=== PATIENT | male | born 1955 | race Caucasian/White ===

== ENCOUNTER 2021-04-14 07:11 | Inpatient (IN) | payer OTHER ==
[~2021-04-14] VITALS: Ht 182.9 cm; Wt 124.0 kg
[2021-04-14] MEDS ORDERED: PROAAER10 INH (07:33)
[2021-04-14] MEDS ORDERED: LISI20TA33 PO (07:33)
[2021-04-14] MEDS ORDERED: COMBAER6 INH (07:33)
[2021-04-14] MEDS ORDERED: SYMB16INH INH (07:33)
[2021-04-14] MEDS ORDERED: LEVO175C PO (07:33)
[2021-04-14] MEDS ORDERED: LASI20TA3 PO (07:33)
[2021-04-14] MEDS ORDERED: ALBUTEROL SULFATE 2.5 MG/0.5 ML INH NEB SOLN INH ONE (07:40)
[2021-04-14] MEDS ORDERED: IPRATROPIUM 0.5MG/ALBUTEROL 2.5MG INH SOL UD 3ML (DUONEB) NEB ONE ×3 (07:40→11:10)
[2021-04-14] MEDS: SYMBICORT 160/4.5MCG INHALER 6GM INH SCH ×2 (08:00→20:59)
[2021-04-14 08:13] LABS: BASO % 0.2 % (0.0-1.0); EOS # 0.1 10^3/uL (0.0-0.5); EOS % 0.7 % (0.0-3.0); HEMATOCRIT 43.7 % (42.0-52.0); HEMOGLOBIN 14.6 g/dl (13.5-17.5); LYMPH # 0.4 10^3/uL (1.5-5.0); MEAN CORPUSCULAR HEMOGLOBIN 31.4 pg (27.0-33.0); MEAN CORPUSCULAR HGB CONC 33.4 g/dl (32.0-36.5); MONO # 0.8 10^3/uL (0.0-0.8); MONO % 8.1 % (2.0-8.0); NEUTROPHILS # 7.9 10^3/uL (1.5-8.5); NEUTROPHILS % 86.2 % (36.0-66.0); PLATELET COUNT, AUTOMATED 217 10^3/uL (150-450); RED BLOOD COUNT 4.65 10^6/uL (4.30-6.10); WHITE BLOOD COUNT 9.2 10^3/uL (4.0-10.0)
--- NOTE | 2021-04-14 08:17 | REP ---
INDICATION: DYSPNEA/COUGH COMPARISON: 11/28/2012 TECHNIQUE: Portable AP view of the chest FINDINGS: Mediastinum and cardiac silhouette are stable with cardiomegaly again suggested. Lung ashton demonstrate diffuse chronic interstitial changes primarily involving the lower lobes. Superimposed bibasilar infiltrates/atelectasis and small pleural effusions are suspected and require correlation. IMPRESSION: Acute on chronic changes including bibasilar atelectasis/infiltrate and small pleural effusions suspected. Differential diagnosis includes element of CHF. <Electronically signed by Dannie Dixon > 04/14/21 [id number]
[2021-04-14 08:47] LABS: ALBUMIN 2.7 GM/DL (3.2-5.2); ALT/SGPT 30 U/L (12-78); BILIRUBIN,DIRECT 0.3 MG/DL (0.0-0.2); BILIRUBIN,TOTAL 0.9 MG/DL (0.2-1.0); BLOOD UREA NITROGEN 10 MG/DL (7-18); CALCIUM LEVEL 8.3 MG/DL (8.8-10.2); CARBON DIOXIDE LEVEL 29 MEQ/L (21-32); CHLORIDE LEVEL 88 MEQ/L (98-107); GLOMERULAR FILTRATION RATE > 60.0 (>49); GLUCOSE, FASTING 93 MG/DL (70-100); NT-PRO BNP 1688 PG/ML (<125); POTASSIUM SERUM 5.2 MEQ/L (3.5-5.1); SODIUM LEVEL 121 MEQ/L (136-145); TOTAL PROTEIN 6.8 GM/DL (6.4-8.2)
[2021-04-14 08:48] LABS: CK-MB VALUE MASS 7.3 NG/ML (<3.6); CPK CREATINE PHOSPHOKINASE 187 U/L (39-308); TROPONIN I < 0.02 NG/ML (< 0.10)
[2021-04-14] MEDS ORDERED: cefTRIAXone SOD 1 GM in D5W MINI-BAG PLUS 50 ML IV ONE (08:55)
[2021-04-14] MEDS ORDERED: AZITHROMYCIN INJ 500 MG, VIAL MATE ADAPTER 1 EACH in NS 250 ML IV ONE (08:55)
[2021-04-14] MEDS: DOCUSATE SODIUM 100MG CAPSULE PO SCH ×2 (09:00→22:22)
[2021-04-14] MEDS ORDERED: ISOVUE-370 76% 100ML VIAL As Ordered ONE ×2 (09:22→10:32)
[2021-04-14] MEDS ORDERED: FUROSEMIDE 20MG/2ML VIAL (J1940) IV ONE (09:25)
[2021-04-14] MEDS ORDERED: FUROSEMIDE 40MG/4ML VIAL (J1940) IV ONE (09:30)
[2021-04-14] MEDS ORDERED: LISI10TA22 PO (09:37)
[2021-04-14] MEDS ORDERED: LEVO175T2 PO (09:37)
[2021-04-14] MEDS ORDERED: MOM 30ML SUSPENSION UDC PO PRN (09:50)
[2021-04-14] MEDS ORDERED: MAALOX 30 ML SUSP *UDC PO PRN (09:50)
[2021-04-14] MEDS ORDERED: IPRATROPIUM 0.5MG/ALBUTEROL 2.5MG INH SOL UD 3ML (DUONEB) NEB PRN (09:50)
[2021-04-14] MEDS ORDERED: ACETAMINOPHEN TAB 650MG DOSE (2X325MG) PO PRN (09:50)
[2021-04-14] MEDS: IPRATROPIUM 0.5MG/ALBUTEROL 2.5MG INH SOL UD 3ML (DUONEB) NEB SCH ×4 (11:10→23:45)
[2021-04-14 11:47] LABS: FREE T4 1.24 NG/DL (0.76-1.46); THYROID STIMULATING HORMONE 1.02 uIU/ML (0.358-3.740)
[2021-04-14 12:15] VITALS: BP 172/85
--- NOTE | 2021-04-14 13:04 | HPEPDOC ---
[facility] Medical History & Physical Date of Admission April 14, 2021 Date of Service: April 14, 2021 History and Physical CHIEF COMPLAINT: Shortness of breath HISTORY OF PRESENT ILLNESS: 65-year-old male with a past medical history of COPD using 3 L of oxygen at home, hypertension, hypothyroidism who presents to the hospital by EMS due to a 3 day history of increased shortness of breath at home. Tells me his been wheezing extensively in his home inhalers have not been helping. Tells me he thinks his COPD is acting up again he is an active smoker and has been smoking for over 50 years. Tells me his shortness of breath has gotten so bad he was not able to sleep at night. He denies sputum production and tells me he does not have a fever or chills denies any chest pain. Tells me the nebulizer treatment sees received since his been have helped and he feels a little better. In the emergency department patient was found to be fluid overloaded possibly from underlying congestive heart failure although he denies having a history of congestive heart failure although he does take Lasix at home. He is also suspected to have a pneumonia. Patient will be admitted to medical service for further workup and management of acute on chronic COPD exacerbation, possible pneumonia, possible CHF exacerbation. PAST MEDICAL/SURGICAL HISTORY: COPD on home oxygen Hypertension Hypothyroidism ?CHF SOCIAL HISTORY: Endorses drinking alcohol intermittently when he drinks he drinks about 6 packs a day denies ever going through withdrawals Smokes 3-4 pipes of tobacco daily has been smoking for the past 50 years Denies illicit drug use FAMILY HISTORY: Reviewed and none contributory to this admission ALLERGIES: Please see below. REVIEW OF SYSTEMS: 10 point review of systems complete all negative otherwise stated in HPI HOME MEDICATIONS: Please see below. PHYSICAL EXAMINATION: Constitutional: Awake and alert, appears comfortable, poor hygiene disheveled, doesn't appear to have showered for a long time, ENT: Sclera are clear. Mucosa is moist. Respiratory: Lungs and expiratory wheezing bilaterally. On supplemental oxygen by nasal cannula. He's able to speak to me 4-5 words at a time Cardiovascular: Regular rate and rhythm Gastrointestinal: Abdomen is soft, non distended, non tender, BS present. Obese abdomen Musculoskeletal: Has been wearing the same compression stockings for the past 4 days he has 2-3+ pitting edema up to his knees Neurologic: No focal neurological deficit. Mental Status: A&O x3, normal affect LABORATORY DATA: See below. IMAGING: See chart MICROBIOLOGY: Please see below. ASSESSMENT/PLAN 65-year-old male history of COPD on home oxygen, hypertension, hypothyroidism presents with shortness of breath found to have COPD exacerbation and possibly CHF exacerbation and pneumonia. Patient admitted for further workup and management. # Acute on chronic COPD exacerbation: Active smoker. Wheezing on exam. Some improvement with nebulizer treatments. Duonebs scheduled and as needed. Sym bicort scheduled. Incentive spirometry. IV Solu-Medrol twice a day. Doxycycline. # Congestive heart failure EF unknown: No previous echo in chart. Follow-up echo. Clinically appears fluid overloaded. Likely contributing to shortness of breath. Diuresis with IV Lasix. Monitor ins and outs. Limit fluid intake 1.5 L per day. # SIRS/Sepsis: Pneumonia possible source of infection. Presented with hypo tension initially which responded well to IV fluids. Continue antibiotics and IV fluids for now. Blood pressure now hypertensive. Follow-up blood cultures. # Possible pneumonia: Chest x-ray suggestive of atelectasis versus pneumonia. Will initiate antibiotics with IV ceftriaxone and doxycycline.Procalcitonin is pending suspicion of pneumonia is not very high and if calcitonin is negative and antibiotics can be discontinued. Sputum culture. # Hypothyroidism: resume Synthroid. # Alcohol abuse: drinks daily. CIWA protocol. Thiamine, MVN, folate. Ativan PRN. # Smoker: Counseled to quit smoking. Nicotine patch. # Obesity: BMI 37. Complicated scare # DVT prophylaxis: Lovenox A Yousef Hospitalist Vital Signs Vital Signs Date Time Temp Pulse Resp B/P (MAP) Pulse Ox O2 Delivery O2 Flow Rate FiO2 04/14/21 12:15 172/85 (114) 04/14/21 11:37 97.7 96 20 95 Nasal Cannula 3.0 Laboratory Data Labs 24H Laboratory Tests 2 04/14/21 07:44: Immature Granulocyte % (Auto) 0.8, Neutrophils (%) (Auto) 86.2H, Lymphocytes (%) (Auto) 4.0L, Monocytes (%) (Auto) 8.1H, Eosinophils (%) (Auto) 0.7, Basophils (%) (Auto) 0.2, Neutrophils # (Auto) 7.9, Lymphocytes # (Auto) 0.4L, Monocytes # (Auto) 0.8, Eosinophils # (Auto) 0.1, Basophils # (Auto) 0.0, Nucleated Red Blood Cells % (auto) 0.0, Anion Gap 4L, Glomerular Filtration Rate > 60.0, Calcium Level 8.3L, Total Bilirubin 0.9, Direct Bilirubin 0.3H, Aspartate Amino Transf (AST/SGOT) 29, Alanine Aminotransferase (ALT/SGPT) 30, Alkaline Loco sphatase 83, HX-Fht-V-Type Natriuretic Peptide 1688H, Total Protein 6.8, Albumin 2.7L, Albumin/Globulin Ratio 0.7 04/14/21 07:54: POC pH (Misc Panel) 7.345L, POC Base Excess (Misc Panel) 5.0H, POC Saturated Percent O2 (Misc) 98, POC pO2 (Misc Panel) 114.0H, POC pCO2 (Misc Panel) 56.7H, POC HCO3 (Misc Panel) 31.0H, POC Total CO2 (Misc Panel) 33.0H 04/14/21 08:02: Total Creatine Kinase 187, Creatine Kinase MB 7.3H, Creatine Kinase MB Relative Index 3.90, Troponin I < 0.02 04/14/21 08:55: Osmolality 257L, Thyroid Stimulating Hormone (TSH) 1.020, Free Thyroxine 1.24 04/14/21 09:46: Procalcitonin <0.05 CBC/BMP Laboratory Tests 04/14/21 07:44 Microbiology Microbiology 04/14/21 Respiratory [facility] ([facility]) ([facility]) - Final, Complete Home Medications Scheduled Budesonide/Formoterol (Symbicort 160-4.5 Mcg Inhaler) 6 Gm Hfa.aer.ad, 2 PUFF INH BID Furosemide (Lasix) 20 Mg Tablet, 20 MG PO DAILY Levothyroxine Sodium (Levothyroxine Sodium) 175 Mcg Tablet, 175 MCG PO DAILY Lisinopril (Lisinopril) 10 Mg Tablet, 10 MG PO DAILY Scheduled PRN Albuterol Sulfate (Proair Hfa) 8.5 Gm Hfa.aer.ad, 2 PUFF INH Q6H PRN for SHORTNESS OF BREATH Ipratropium/Albuterol Sulfate (Combivent Respimat 20-100 Mcg) 4 Gm Mist.inhal, 2 PUFF INH TID PRN for SHORTNESS OF BREATH Allergies Coded Allergies: No Known Drug Allergies (Verified Allergy, Unknown, 04/14/21) A-FIB/CHADSVASC A-FIB History Current/History of A-Fib/PAF?: No YOUSEFCASTILLO MD April 14, 2021 13:04
[2021-04-14] MEDS ORDERED: LORazepam 2 MG TAB PO PRN (13:05)
[2021-04-14] MEDS: NICOTINE 21MG/24HR 1 EA TRANSDERMAL TD SCH (13:08)
[2021-04-14] MEDS: methylPREDNISolone 125MG 2ML VIAL IV SCH ×2 (13:08→22:22)
[2021-04-14] MEDS: DOXYCYCLINE HYCLATE 100 MG in D5W MINI-BAG PLUS 100 ML IV SCH (13:08)
[2021-04-14] MEDS: ENOXAPARIN 40MG/0.4ML SYRINGE (J1650 PER 10MG) SC SCH (13:09)
[2021-04-14] MEDS: PANTOPRAZOLE 40MG TAB (PROTONIX) PO SCH (13:09)
[2021-04-14] MEDS: FUROSEMIDE 40MG/4ML VIAL (J1940) IV SCH ×2 (13:09→18:28)
[2021-04-14 14:43] VITALS: BP 172/75
[2021-04-14] MEDS: FOLIC ACID 1 MG TAB PO SCH (15:29)
[2021-04-14] MEDS: MULTIVITAMINS/MINERALS THERAP 1 TAB PO SCH (15:29)
[2021-04-14] MEDS: THIAMINE 100 MG TAB PO SCH ×2 (15:30→22:22)
[2021-04-14 16:00] VITALS: BP 156/77
[2021-04-14] MEDS ORDERED: SLF 3 ML SYR IV PRN (17:45)
[2021-04-14 20:00] VITALS: BP 156/85
--- NOTE | 2021-04-14 20:33 | ECGEPIP ---
[facility] - ED Test Date: 2021-04-14 Pat Name: GENOVEVA LANZA Department: Room: - Gender: Male Analytics Intern: BENJA : 1955 Requested By: Rafiq Nye Order Number: [id number] Reading MD: Harriet Elias Measurements Intervals [place] Rate: 90 P: 70 IN: 188 QRS: -40 QRSD: 108 T: 60 QT: 354 QTc: 433 Interpretive Statements Normal sinus rhythm Left axis deviation Pulmonary disease pattern Incomplete left bundle branch block ST & T wave abnormality, consider anterolateral ischemia, clinical correlation no prior Electronically Signed on 04-14-2021 20:33:15 EDT by Harriet Elias
[2021-04-14 22:00] VITALS: BP 156/85
[2021-04-14] MEDS: SLF 3 ML SYR IV SCH (22:22)
[2021-04-15] VITALS (7 sets, daily range): BP systolic 145–174; BP diastolic 83–100
[2021-04-15] MEDS: DOXYCYCLINE HYCLATE 100 MG in D5W MINI-BAG PLUS 100 ML IV SCH (00:11)
[2021-04-15] MEDS: IPRATROPIUM 0.5MG/ALBUTEROL 2.5MG INH SOL UD 3ML (DUONEB) NEB SCH ×6 (04:26→23:58)
[2021-04-15 05:53] LABS: HEMATOCRIT 42.8 % (42.0-52.0); HEMOGLOBIN 14.3 g/dl (13.5-17.5); MEAN CORPUSCULAR HEMOGLOBIN 31.5 pg (27.0-33.0); MEAN CORPUSCULAR HGB CONC 33.4 g/dl (32.0-36.5); MEAN CORPUSCULAR VOLUME 94.3 fl (80.0-96.0); PLATELET COUNT, AUTOMATED 226 10^3/uL (150-450); RED BLOOD COUNT 4.54 10^6/uL (4.30-6.10); WHITE BLOOD COUNT 10.9 10^3/uL (4.0-10.0)
[2021-04-15] MEDS: LEVOTHYROXINE 25MCG TABLET (0.025MG) PO SCH (06:07)
[2021-04-15] MEDS: SLF 3 ML SYR IV SCH ×3 (06:07→23:18)
[2021-04-15] MEDS: LEVOTHYROXINE 150MCG TABLET (0.15MG) PO SCH (06:07)
[2021-04-15 06:28] LABS: ALBUMIN 2.6 GM/DL (3.2-5.2); ALT/SGPT 27 U/L (12-78); BILIRUBIN,TOTAL 0.6 MG/DL (0.2-1.0); BLOOD UREA NITROGEN 19 MG/DL (7-18); CALCIUM LEVEL 8.5 MG/DL (8.8-10.2); CARBON DIOXIDE LEVEL 33 MEQ/L (21-32); CHLORIDE LEVEL 88 MEQ/L (98-107); CREATININE FOR GFR 1.13 MG/DL (0.70-1.30); GLOMERULAR FILTRATION RATE > 60.0 (>49); GLUCOSE, FASTING 121 MG/DL (70-100); POTASSIUM SERUM 5.5 MEQ/L (3.5-5.1); SODIUM LEVEL 122 MEQ/L (136-145); TOTAL PROTEIN 7.3 GM/DL (6.4-8.2)
[2021-04-15] MEDS ORDERED: IPRATROPIUM 0.5MG/ALBUTEROL 2.5MG INH SOL UD 3ML (DUONEB) NEB PRN (07:55)
[2021-04-15] MEDS: SYMBICORT 160/4.5MCG INHALER 6GM INH SCH ×2 (07:59→20:33)
[2021-04-15] MEDS: ENOXAPARIN 40MG/0.4ML SYRINGE (J1650 PER 10MG) SC SCH (08:40)
[2021-04-15] MEDS: DOCUSATE SODIUM 100MG CAPSULE PO SCH ×2 (08:40→20:08)
[2021-04-15] MEDS: FUROSEMIDE 40MG/4ML VIAL (J1940) IV SCH ×2 (08:41→18:02)
[2021-04-15] MEDS: PANTOPRAZOLE 40MG TAB (PROTONIX) PO SCH (08:41)
[2021-04-15] MEDS: NICOTINE 21MG/24HR 1 EA TRANSDERMAL TD SCH (08:41)
[2021-04-15] MEDS: MULTIVITAMINS/MINERALS THERAP 1 TAB PO SCH (08:41)
[2021-04-15] MEDS: FOLIC ACID 1 MG TAB PO SCH (08:41)
[2021-04-15] MEDS: THIAMINE 100 MG TAB PO SCH ×2 (08:41→20:08)
[2021-04-15] MEDS ORDERED: cefTRIAXone SOD 1 GM in D5W MINI-BAG PLUS 50 ML IV SCH (11:00)
[2021-04-15] MEDS: methylPREDNISolone 125MG 2ML VIAL IV SCH ×2 (12:09→23:17)
--- NOTE | 2021-04-15 12:24 | IPNPDOC ---
Text Note Date of Service The patient was seen on 04/15/21. NOTE Subjective: -No acute complaints -Remains on 2L NC -Reports that he is not bringing anything up and wish he could break it up and bring it up. Objective: PHYSICAL EXAMINATION: Constitutional: Awake and alert, NAD ENT: Sclera are clear and anicteric. Mucosa is moist. Respiratory: Tight, wheezing, on 2L NC, speaking in 1/2 sentences at this time, coughing Cardiovascular: Regular rate and rhythm, no murmurs or gallops Abdomen: Obese, normoactive sounds, soft, non distended, non tender. Extremities: 2-3+ pitting edema up to his knees, WWP Neurologic: AOx3, CN2-12 appear grossly intact, no noted focal neurological deficit. Mental Status: A&O x3, normal affect LABORATORY DATA: Reviewed WBC 10.9 Hgb 14.3 platelets 226 Na 122 K 5.5 Cr 1.13 MICROBIOLOGY: Please see below. ASSESSMENT/PLAN 65-year-old M with a history of COPD on home oxygen, hypertension, hypothyroi dism who presented with shortness of breath and admitted for COPD exacerbation and possibly CHF exacerbation and possible bacterial pneumonia. # COPD exacerbation: Active smoker with wheezing on exam. with some improvement with nebulizer treatments. -Duonebs scheduled and as needed. -Symbicort scheduled. -Incentive spirometry. -IV Solu-Medrol twice a day. -Q6H hypertonic saline -scheduled mucinex -DC doxycycline # SIRS/Sepsis: With pulmonary symptoms and possible pneumonia -Discontinue empiric antibiotics. -Follow-up blood cultures. -procalcitonin was normal making bacterial PNA highly unlikely, and thus discontinuation of antibiotics #Newly noted likely congestive heart failure EF unknown: -No previous echo in chart. Follow-up echo. -Clinically appears fluid overloaded. -Diuresis with IV Lasix. -Strict ins and outs. -Limit fluid intake 1.5 L per day. #Hyponatremia: likely hypotonic driven by hypervolemia in the setting of CHF. Of note, also has alcohol use disorder. -check urine sodium. This was ordered on the morning of 04/14 and has still to be collected, will remind nursing to please collect. -monitor daily Na -continue ongoing diuresis #Hyperkalemia: -on BID lasix # Hypothyroidism: -continue home Synthroid. # Alcohol abuse: -drinks daily. -CIWA protocol. -Thiamine, MVN, folate. -Ativan PRN. # Smoker: -Counseled to quit smoking. -Nicotine patch. # Obesity: BMI 37. Complicates care # DVT prophylaxis: Lovenox VS,Fishbone, I+O VS, Fishbone, I+O Laboratory Tests 04/14/21 07:44 04/15/21 05:33 Vital Signs Date Time Temp Pulse Resp B/P (MAP) Pulse Ox O2 Delivery O2 Flow Rate FiO2 04/15/21 06:00 100 156/98 04/15/21 04:00 97.8 22 95 Nasal Cannula 2.0 I&O- Last 24 Hours up to 6 AM 04/15/21 06:00 Intake Total 890 ml Output Total 800 ml Balance 90 ml IRASEMA LANDIS MD April 15, 2021 07:59
[2021-04-15] MEDS: SODIUM CHLORIDE HYPERTONIC 3% 15ML NEB SOL INH SCH ×2 (13:09→23:58)
[2021-04-15] MEDS: guaiFENesin 200 MG TAB PO SCH ×3 (13:42→23:18)
[2021-04-16] MEDS: SODIUM CHLORIDE HYPERTONIC 3% 15ML NEB SOL INH SCH ×4 (04:03→23:35)
[2021-04-16] MEDS: IPRATROPIUM 0.5MG/ALBUTEROL 2.5MG INH SOL UD 3ML (DUONEB) NEB SCH ×6 (04:03→23:35)
[2021-04-16] MEDS: LEVOTHYROXINE 150MCG TABLET (0.15MG) PO SCH (05:11)
[2021-04-16] MEDS: LEVOTHYROXINE 25MCG TABLET (0.025MG) PO SCH (05:11)
[2021-04-16] MEDS: guaiFENesin 200 MG TAB PO SCH ×4 (05:11→23:53)
[2021-04-16] MEDS: SLF 3 ML SYR IV SCH ×3 (05:12→21:15)
[2021-04-16 05:32] LABS: APPEARANCE, URINE CLEAR (CLEAR); BACTERIA, URINE AUTO NEGATIVE (NEGATIVE); BILIRUBIN, URINE AUTO NEGATIVE (NEGATIVE); BLOOD, URINE BLOOD 3+ (NEGATIVE); COLOR, URINE YELLOW (YELLOW); GLUCOSE, URINE (UA) AUTO NEGATIVE (NEGATIVE); KETONE, URINE AUTO NEGATIVE (NEGATIVE); LEUKOCYTE ESTERASE, URINE AUTO NEGATIVE (NEGATIVE); MUCUS, URINE SMALL (NEGATIVE); NITRITE, URINE AUTO NEGATIVE (NEGATIVE); PROTEIN, URINE AUTO NEGATIVE (NEGATIVE); RBC, URINE AUTO 6 /HPF (0-3); SPECIFIC GRAVITY URINE AUTO 1.009 (1.002-1.035); SQUAMOUS EPITHELIAL CELL UR AU 0 /HPF (0-6); UROBILINOGEN, URINE AUTO 0.2 mg/dL (0.0-2.0); WBC, URINE AUTO 2 /HPF (0-3)
[2021-04-16 05:54] LABS: CREATININE,RANDOM URINE 75.6 MG/DL; SODIUM,RANDOM URINE 10 MEQ/L
[2021-04-16 06:00] VITALS: BP 168/97
[2021-04-16] MEDS: SYMBICORT 160/4.5MCG INHALER 6GM INH SCH ×2 (07:29→20:03)
[2021-04-16 09:38] LABS: HEMATOCRIT 48.9 % (42.0-52.0); MEAN CORPUSCULAR HEMOGLOBIN 31.7 pg (27.0-33.0); MEAN CORPUSCULAR HGB CONC 32.7 g/dl (32.0-36.5); PLATELET COUNT, AUTOMATED 273 10^3/uL (150-450); RED BLOOD COUNT 5.04 10^6/uL (4.30-6.10); WHITE BLOOD COUNT 13.3 10^3/uL (4.0-10.0)
[2021-04-16] MEDS: NICOTINE 21MG/24HR 1 EA TRANSDERMAL TD SCH (09:55)
[2021-04-16] MEDS: PANTOPRAZOLE 40MG TAB (PROTONIX) PO SCH (09:56)
[2021-04-16] MEDS: MULTIVITAMINS/MINERALS THERAP 1 TAB PO SCH (09:56)
[2021-04-16] MEDS: FUROSEMIDE 40MG/4ML VIAL (J1940) IV SCH (09:56)
[2021-04-16] MEDS: ENOXAPARIN 40MG/0.4ML SYRINGE (J1650 PER 10MG) SC SCH (09:56)
[2021-04-16] MEDS: DOCUSATE SODIUM 100MG CAPSULE PO SCH ×2 (09:56→21:15)
[2021-04-16] MEDS: THIAMINE 100 MG TAB PO SCH ×2 (09:58→21:15)
[2021-04-16] MEDS: FOLIC ACID 1 MG TAB PO SCH (09:58)
[2021-04-16] MEDS: methylPREDNISolone 125MG 2ML VIAL IV SCH ×2 (10:00→23:53)
[2021-04-16 10:06] LABS: BLOOD UREA NITROGEN 23 MG/DL (7-18); CALCIUM LEVEL 8.9 MG/DL (8.8-10.2); CARBON DIOXIDE LEVEL 35 MEQ/L (21-32); CHLORIDE LEVEL 92 MEQ/L (98-107); CREATININE FOR GFR 0.97 MG/DL (0.70-1.30); GLOMERULAR FILTRATION RATE > 60.0 (>49); GLUCOSE, FASTING 110 MG/DL (70-100); POTASSIUM SERUM 5.2 MEQ/L (3.5-5.1); SODIUM LEVEL 128 MEQ/L (136-145)
[2021-04-16 14:00] VITALS: BP 157/93
--- NOTE | 2021-04-16 15:19 | IPNPDOC ---
Text Note Date of Service The patient was seen on 04/16/21. NOTE Subjective: -No acute complaints -On 3L NC this morning -coughing is slightly improving Objective: Vitals: see below Constitutional: Awake and alert, NAD ENT: Sclera are clear and anicteric. Mucosa is moist. Respiratory: Diminished, persistent scattered wheezing improved though from yesterday, on 3L NC, speaking in full sentences at this time Cardiovascular: Regular rate and rhythm, no murmurs or gallops Abdomen: Obese, normoactive sounds, soft, non distended, non tender. Extremities: pitting edema to ankles, WWP Neurologic: AOx3, CN2-12 appear grossly intact, no noted focal neurological deficit. Mental Status: A&O x3, normal affect LABORATORY DATA: Reviewed: Urine sodium was <10 MICROBIOLOGY: Please see below. ASSESSMENT/PLAN 65-year-old M with a history of COPD on home oxygen, hypertension, hypothyroidism who presented with shortness of breath and admitted for COPD exacerbation and possibly CHF exacerbation. # COPD exacerbation: Active smoker with wheezing on exam. with some improvement with nebulizer treatments. -Duonebs scheduled and as needed. -Symbicort scheduled. -Incentive spirometry. -continue IV Solu-Medrol twice a day for now. -Q6H hypertonic saline -scheduled mucinex # SIRS/Sepsis: With pulmonary symptoms and possible pneumonia -Discontinued empiric antibiotics. -Follow-up blood cultures. -procalcitonin was normal making bacterial PNA highly unlikely, and thus discontinuation of antibiotics #Newly noted likely congestive heart failure EF unknown: -No previous echo in chart. Follow-up echo. -Clinically appears fluid overloaded. -Diuresis with IV LasixBID, will check this AM/s BMP -Strict ins and outs. -Limit fluid intake 1.5 L per day. #Hyponatremia: likely hypotonic driven by hypervolemia in the setting of CHF. Of note, also has alcohol use disorder. -Hypervolemia, low urine osmoles and low urine sodium suggests this to be 2/2 CHF. -monitor daily Na, follow up AM Na today with ongoing diuresis -continue ongoing diuresis #Hyperkalemia: -on BID lasix -f/u AM BMP # Hypothyroidism: -continue home Synthroid. # Alcohol abuse: -drinks daily. -CIWA protocol. -Thiamine, MVN, folate. -Ativan PRN. # Smoker: -Counseled to quit smoking. -Nicotine patch. # Obesity: BMI 37. Complicates care # DVT prophylaxis: Lovenox VS,Fishbone, I+O VS, Fishbone, I+O Vital Signs Date Time Temp Pulse Resp B/P (MAP) Pulse Ox O2 Delivery O2 Flow Rate FiO2 04/16/21 06:00 96 168/97 04/16/21 06:00 97.4 18 92 Room Air 3.0 I&O- Last 24 Hours up to 6 AM 04/16/21 06:00 Intake Total 755 ml Output Total 1750 ml Balance -995 ml IRASEMA LANDIS MD April 16, 2021 09:07
[2021-04-16 20:00] VITALS: BP 155/91
[2021-04-16 22:00] VITALS: BP 155/91
[2021-04-17] MEDS: SODIUM CHLORIDE HYPERTONIC 3% 15ML NEB SOL INH SCH ×2 (03:54→11:09)
[2021-04-17] MEDS: IPRATROPIUM 0.5MG/ALBUTEROL 2.5MG INH SOL UD 3ML (DUONEB) NEB SCH ×3 (03:54→11:09)
[2021-04-17] MEDS: LEVOTHYROXINE 25MCG TABLET (0.025MG) PO SCH (05:17)
[2021-04-17] MEDS: guaiFENesin 200 MG TAB PO SCH (05:17)
[2021-04-17] MEDS: SLF 3 ML SYR IV SCH (05:17)
[2021-04-17] MEDS: LEVOTHYROXINE 150MCG TABLET (0.15MG) PO SCH (05:17)
[2021-04-17 06:21] VITALS: BP 155/93
[2021-04-17 07:37] LABS: HEMATOCRIT 47.3 % (42.0-52.0); MEAN CORPUSCULAR HEMOGLOBIN 31.4 pg (27.0-33.0); MEAN CORPUSCULAR HGB CONC 31.7 g/dl (32.0-36.5); PLATELET COUNT, AUTOMATED 266 10^3/uL (150-450); RED BLOOD COUNT 4.78 10^6/uL (4.30-6.10); WHITE BLOOD COUNT 10.2 10^3/uL (4.0-10.0)
[2021-04-17] MEDS: SYMBICORT 160/4.5MCG INHALER 6GM INH SCH (07:38)
[2021-04-17 08:11] LABS: BLOOD UREA NITROGEN 27 MG/DL (7-18); CALCIUM LEVEL 8.8 MG/DL (8.8-10.2); CARBON DIOXIDE LEVEL 38 MEQ/L (21-32); CHLORIDE LEVEL 95 MEQ/L (98-107); CREATININE FOR GFR 0.84 MG/DL (0.70-1.30); GLOMERULAR FILTRATION RATE > 60.0 (>49); GLUCOSE, FASTING 124 MG/DL (70-100); MAGNESIUM LEVEL 2.1 MG/DL (1.8-2.4); POTASSIUM SERUM 5.2 MEQ/L (3.5-5.1); SODIUM LEVEL 133 MEQ/L (136-145)
[2021-04-17 09:00] VITALS: BP 155/93
[2021-04-17] MEDS ORDERED: FUROSEMIDE 40 MG TAB PO SCH (09:00)
[2021-04-17] MEDS: NICOTINE 21MG/24HR 1 EA TRANSDERMAL TD SCH (10:14)
[2021-04-17 10:15] VITALS: BP 155/93
[2021-04-17] MEDS: methylPREDNISolone 125MG 2ML VIAL IV SCH (10:15)
[2021-04-17] MEDS: PANTOPRAZOLE 40MG TAB (PROTONIX) PO SCH (10:15)
[2021-04-17] MEDS: DOCUSATE SODIUM 100MG CAPSULE PO SCH (10:15)
[2021-04-17] MEDS: MULTIVITAMINS/MINERALS THERAP 1 TAB PO SCH (10:15)
[2021-04-17] MEDS: ENOXAPARIN 40MG/0.4ML SYRINGE (J1650 PER 10MG) SC SCH (10:15)
[2021-04-17] MEDS: FOLIC ACID 1 MG TAB PO SCH (10:15)
[2021-04-17] MEDS ORDERED: FURO40TA2 PO (10:41)
[2021-04-17] MEDS ORDERED: MUCI1TAB16 PO (10:41)
[2021-04-17] MEDS ORDERED: PANT40TA29 PO (10:41)
[2021-04-17] MEDS ORDERED: PRED10TA2 PO (10:41)
--- NOTE | 2021-04-17 10:56 | DS.PDOC ---
Discharge Summary General Date of Admission April 14, 2021 at 09:46 Date of Discharge 04/17/2021 Attending Physician: IRASEMA LANDIS MD Discharge Summary PROCEDURES PERFORMED DURING STAY: None ADMITTING DIAGNOSES: COPD exacerbation DISCHARGE DIAGNOSES: COPD exacerbation Mild CHF exacerbation, subtype unclear, with still pending TTE report Chronic hypoxemic respiratory failure on baseline 3L at home Congestive nephropathy with acute renal insufficiency Hypotonic hypervolemic hyponatremia Morbid obesity Hypertension Hypothyroidism COMPLICATIONS/CHIEF COMPLAINT: Copd Exacerbation,Hyponatremia,Pneumonia. HISTORY OF PRESENT ILLNESS: 65-year-old M with a past medical history of COPD using 3 L of oxygen at home, hypertension, hypothyroidism who presented to the hospital by EMS due to a 3 day history of increased shortness of breath at home, reporting that he had been wheezing extensively in his home and inhalers had not been helping. He is an active smoker and has been smoking for over 50 years. He denied sputum production, fever or chills and denied any chest pain. HOSPITAL COURSE: In the emergency department patient was found to be fluid overloaded possibly from underlying congestive heart failure although he had no knowledge of having a history of congestive heart failure although he does take Lasix at home. He was admitted for COPD exacerbation, CHF exacerbation and suspicion of pneumonia. He was also found to have an CHLOE and hyponatremia that both improved with IV diuretics. His oxygen requirement remained at his baseline home 3L throughout his stay but his tachypne and SOB did get better with diuresis and steroids. He was also very wheezy on presentation and that improved as well. He requested for a home concentrator because he has a small portable concentrator that he has been using to maintain his saturations above 88% 17/06. On my examination on the day of discharge, taking off oxygen at rest he desaturates to 86% and when he stands and begins ambulation he desaturates to 81% within a few steps. I have therefore written a script for his home concentrator. I have also prescribed a prednisone taper, mucinex, and increased his lasix from 20 daily to 40mg PO daily. He is to follow up with his PCP within the next week, and will [facility]. DISCHARGE MEDICATIONS: Please see below. ALLERGIES: Please see below. PHYSICAL EXAMINATION ON DISCHARGE: VITAL SIGNS: Please see below. Vitals: see below Constitutional: Awake and alert, NAD ENT: Sclera are clear and anicteric. Mucosa is moist. Respiratory: Diminished, persistent but now rare scattered wheezing, on 3L NC, speaking in full sentences at this time Cardiovascular: Regular rate and rhythm, no murmurs or gallops Abdomen: Obese, normoactive sounds, soft, non distended, non tender. Extremities: pitting edema to ankles, WWP Neurologic: AOx3, CN2-12 appear grossly intact, no noted focal neurological deficit. Mental Status: A&O x3, normal affect LABORATORY DATA: Please see below. IMAGING: CXR: Mediastinum and cardiac silhouette are stable with cardiomegaly again suggested. Lung ashton demonstrate diffuse chronic interstitial changes primarily involving the lower lobes. Superimposed bibasilar infiltrates/atelectasis and small pleural effusions are suspected and require correlation. IMPRESSION: Acute on chronic changes including bibasilar atelectasis/infiltrate and small pleural effusions suspected. Differential diagnosis includes element of CHF. PROGNOSIS: Good ACTIVITY: As tolerated DIET: 2g sodium DISCHARGE PLAN: Home with prednisone taper and increase in lasix dosing to 40mg daily DISPOSITION: home DISCHARGE INSTRUCTIONS: Home with prednisone taper and increase in lasix dosing to 40mg daily ITEMS TO FOLLOWUP ON ON OUTPATIENT: COPD - PCP with potential referral to [place] pulmonology by PCP. CHF - Had TTE here that has a pending read. DISCHARGE CONDITION: Stable TIME SPENT ON DISCHARGE:40 minutes. Vital Signs/I&Os Vital Signs Date Time Temp Pulse Resp B/P (MAP) Pulse Ox O2 Delivery O2 Flow Rate FiO2 04/17/21 10:15 155/93 04/17/21 06:45 2.0 04/17/21 06:21 98.9 96 20 92 Nasal Cannula I&O- Last 24 Hours up to 6 AM 04/17/21 06:00 Intake Total 1070 ml Output Total 2050 ml Balance -980 ml Laboratory Data Labs 24H Laboratory Tests 2 04/17/21 07:15: Nucleated Red Blood Cells % (auto) 0.0, Anion Gap 0L, Glomerular Filtration Rate > 60.0, Calcium Level 8.8, Magnesium Level 2.1 CBC/BMP Laboratory Tests 04/17/21 07:15 Microbiology Microbiology 04/14/21 Blood Culture - Preliminary, Resulted No Growth after 48 hours. All Specime... 04/14/21 Respiratory Virus Panel (PCR) ([facility]) - Final, Complete Discharge Medications Scheduled Budesonide/Formoterol (Symbicort 160-4.5 Mcg Inhaler) 6 Gm Hfa.aer.ad, 2 PUFF INH BID, (Reported) Furosemide (Furosemide) 40 Mg Tablet, 1 TAB PO DAILY Guaifenesin (Mucinex) 1,200 Mg Tab.er.12h, 1 TAB PO BID for cough Levothyroxine Sodium (Levothyroxine Sodium) 175 Mcg Tablet, 175 MCG PO DAILY, (Reported) Lisinopril (Lisinopril) 10 Mg Tablet, 10 MG PO DAILY, (Reported) Pantoprazole Sodium (Pantoprazole Sodium) 40 Mg Tablet.dr, 40 MG PO DAILY Prednisone (Prednisone) 10 Mg Tablet, 1 TAB PO ASDIRECTED 5omg daily for 4d, then 40mg daily for 4d, then 30mg daily for 4d, then 20mg daily for 4d, then 10mg daily for 4d. Scheduled PRN Albuterol Sulfate (Proair Hfa) 8.5 Gm Hfa.aer.ad, 2 PUFF INH Q6H PRN for SHORTNESS OF BREATH, (Reported) Ipratropium/Albuterol Sulfate (Combivent Respimat 20-100 Mcg) 4 Gm Mist.inhal, 2 PUFF INH TID PRN for SHORTNESS OF BREATH, (Reported) Allergies Coded Allergies: No Known Drug Allergies (Verified Allergy, Unknown, 04/14/21) IRASEMA LANDIS MD April 17, 2021 10:56
[2021-04-18 16:09] LABS: MYCOPLASMA PNEUMONIAE IgG 271 U/mL (0-99); MYCOPLASMA PNEUMONIAE IgM <770 U/mL (0-769)
[2021-04-19 14:09] LABS: BODY FLUID CULTURE Not indicated. (.); LEGIONELLA ANTIGEN URINE Negative (Negative); ORGANISM ID Not indicated. (.); SPECIMEN SOURCE Urine (.); URINE STREP PNEUMONIAE ANTIGEN Negative (Negative)
--- NOTE | 2021-04-20 07:30 | ECHO ---
DATE OF PROCEDURE: 04/14/2021 Age: 65 Gender: Male REFERRING PROVIDER: Dr. Hiram Norman. PATIENT LOCATION: Room 3223. REASON FOR STUDY: Shortness of breath. 2D MEASUREMENTS: IVS 1.5 cm LV 3.9 cm LVPW 1.5 cm LA 3.3 cm Aorta 3.3 cm IVC 1.5 cm DOPPLER MEASUREMENT Peak velocity across the aortic valve 1.5 m/s Peak velocity across the LVOT 0.8 m/s Mitral E 1.1 2D COMMENTS: 1. Normal left ventricular size with mildly increased left ventricular wall thickness. Left ventricular systolic function is normal, estimated at 60 to 65%. 2. Normal left atrium. Normal right atrium and right ventricle. 3. The atrial septum appeared to be normal without evidence of defect or shunt. 4. Normal aortic root. 5. No pericardial effusion seen. 6. Aortic valve, mitral valve, and tricuspid valve appeared to be normal. The pulmonic valve and proximal pulmonary artery branches were not well visualized. 7. The inferior vena cava was normal in size at 1.5 cm. DOPPLER: No significant valvular abnormalities detected. Assessment of the left ventricular diastolic function was limited. IMPRESSION: 1. Normal global left ventricular systolic function with mild concentric left ventricular hypertrophy. 2. No significant valvular abnormalities. 3. This study was technically limited due to poor acoustic window secondary to lung interference. MTDD
== END 2021-04-17 13:30 | disposition home health service (06) | DRG 191 ==
LOC: M ED 07:11 → M ED INP 09:46 → ENRESERV 10:28 → M PCU 11:29 → M MS5PR 04-15 13:55
PROVIDERS: ADMIT Family Medicine; ATTEND Internal Medicine
DX: J44.1 Chronic obstructive pulmonary disease with (acute) exacerbation (principal); E87.1 Hypo-osmolality and hyponatremia; J96.11 Chronic respiratory failure with hypoxia; I11.0 Hypertensive heart disease with heart failure; E03.9 Hypothyroidism, unspecified; F17.290 Nicotine dependence, other tobacco product, uncomplicated; F10.10 Alcohol abuse, uncomplicated; I50.9 Heart failure, unspecified; E66.01 Morbid (severe) obesity due to excess calories; Z68.37 Body mass index [BMI] 37.0-37.9, adult; Z20.822 Contact with and (suspected) exposure to COVID-19; Z79.899 Other long term (current) drug therapy; Z99.81 Dependence on supplemental oxygen; E87.5 Hyperkalemia; N28.9 Disorder of kidney and ureter, unspecified

== ENCOUNTER → 2022-08-09 | Outpatient (REF) ==
[~2022-08-09] MED LIST: COMBAER6 INH; FURO40TA2 PO; LASI20TA3 PO; LEVO175C PO; LEVO175T2 PO; LISI10TA22 PO; LISI20TA33 PO; MUCI1TAB16 PO; PANT40TA29 PO; PRED10TA2 PO; PROAAER10 INH; SYMB16INH INH
== END ==
LOC: M LAB LCGH 17:17
DX: Z78.9 Other specified health status (principal)

== ENCOUNTER → 2022-12-05 | Outpatient (REF) | LOC: M LAB LCGH 09:20 | DX: Z00.00 Encounter for general adult medical examination without abnormal findings (principal) ==